=== PATIENT | male | born 1955 | race Caucasian/White ===

== ENCOUNTER → 2018-02-27 | Outpatient (CLI) | payer OTHER ==
[~2018-02-27] MED LIST: PANT40TA25 PO
== END | disposition home or self-care (01) ==
LOC: LAB 08:55
PROVIDERS: ATTEND Urology
DX: N40.1 Benign prostatic hyperplasia with lower urinary tract symptoms (principal)
CPT/HCPCS: 36415; 84153; 84154

== ENCOUNTER → 2018-11-02 | Outpatient (CLI) | payer OTHER ==
[~2018-11-02] VITALS: Ht 182.9 cm; Wt 90.7 kg
[2018-11-02 09:41] LABS: BILIRUBIN,URINE Negative (NEGATIVE); COLOR,URINE Yellow (YELLOW); GLUCOSE, URINE (UA) Negative (NEGATIVE); KETONES,URINE Negative (NEGATIVE); LEUKOCYTE ESTERASE ,URINE Negative (NEGATIVE); NITRATE,URINE Negative (NEGATIVE); OCCULT BLOOD,URINE Negative (NEGATIVE); PROTEIN,URINE Negative (NEGATIVE); UROBILINOGEN,URINE 0.2 mg/dL (0.2-1.0)
[2018-11-02 09:53] LABS: APPEARANCE,URINE CLEAR (CLEAR)
== END | disposition home or self-care (01) ==
LOC: LAB 09:03
PROVIDERS: ATTEND Urology
DX: N39.0 Urinary tract infection, site not specified (principal)
CPT/HCPCS: 36415; 81003; 84153; 84154; 84550; 87088

== ENCOUNTER → 2019-05-07 | Outpatient (CLI) | payer OTHER ==
[2019-05-07 09:00] LABS: BASOPHILS % (AUTO) 0.9 % (0.0-5.0); EOSINOPHILS % (AUTO) 2.8 % (0.0-8.0); HEMATOCRIT 41.5 % (42-54); LYMPHOCYTES % (AUTO) 45.7 % (21.0-51.0); MEAN CORPUSCULAR HEMOGLOBIN 32.5 pg (27.0-33.0); MEAN CORPUSCULAR HGB CONC 34.6 g/dL (32.0-36.0); MEAN CORPUSCULAR VOLUME 93.7 fL (79-99); MONOCYTES % (AUTO) 7.4 % (3.0-13.0); NEUTROPHILS % (AUTO) 43.2 % (40.0-77.0); NUCLEATED RED BLOOD CELLS 0.1 % (0.0-0.19); PLATELET COUNT (AUTO) 224 K/uL (130-400); RED BLOOD CELL COUNT(AUTO) 4.43 MIL/uL (4.50-6.20); RED CELL DISTRIBUTION WIDTH 12.8 % (11.0-15.5); WHITE BLOOD COUNT (AUTO) 6.7 K/uL (4.8-10.8)
[2019-05-07 09:20] LABS: ALBUMIN 4.1 g/dL (3.5-5.0); BILIRUBIN,TOTAL 0.7 mg/dL (0.2-1.0); CREATININE 1.3 mg/dL (0.5-1.5); POTASSIUM 4.6 mmol/L (3.5-5.1); THYROID STIMULATING HORMONE 2.39 uIU/mL (0.36-3.74); TOTAL PROTEIN, SERUM 7.7 g/dL (6.0-8.3)
== END | disposition home or self-care (01) ==
LOC: LAB 08:12
PROVIDERS: ATTEND Internal Medicine
DX: Z00.00 Encounter for general adult medical examination without abnormal findings (principal); R03.0 Elevated blood-pressure reading, without diagnosis of hypertension
CPT/HCPCS: 36415; 80053; 80061; 84153; 84154; 84443; 85025

== ENCOUNTER → 2019-07-01 | Outpatient (CLI) | payer OTHER | END | disposition home or self-care (01) | LOC: RAH 10:00 | PROVIDERS: ATTEND Urology | DX: N50.3 Cyst of epididymis (principal) | CPT/HCPCS: 76870 ==

== ENCOUNTER → 2020-07-14 | Outpatient (CLI) | payer OTHER ==
[~2020-07-14] MED LIST changes: -PANT40TA25 PO; +PANT40TA55 PO
[2020-07-14 09:41] LABS: EOSINOPHILS % (AUTO) 3.5 % (0.0-8.0); HEMATOCRIT 40.9 % (42-54); LYMPHOCYTES % (AUTO) 41.6 % (21.0-51.0); MEAN CORPUSCULAR HEMOGLOBIN 30.9 pg (27.0-33.0); MEAN CORPUSCULAR HGB CONC 34.5 g/dL (32.0-36.0); MEAN CORPUSCULAR VOLUME 89.7 fL (79-99); MONOCYTES % (AUTO) 6.3 % (3.0-13.0); NEUTROPHILS % (AUTO) 47.3 % (40.0-77.0); PLATELET COUNT (AUTO) 229 K/uL (130-400); RED BLOOD CELL COUNT(AUTO) 4.56 MIL/uL (4.50-6.20); RED CELL DISTRIBUTION WIDTH 12.6 % (11.0-15.5); WHITE BLOOD COUNT (AUTO) 5.8 K/uL (4.8-10.8)
[2020-07-14 09:58] LABS: APPEARANCE,URINE Clear (CLEAR); BILIRUBIN,URINE Negative (NEGATIVE); COLOR,URINE Yellow (YELLOW); GLUCOSE, URINE (UA) Negative (NEGATIVE); KETONES,URINE Negative (NEGATIVE); LEUKOCYTE ESTERASE ,URINE Negative (NEGATIVE); NITRATE,URINE Negative (NEGATIVE); OCCULT BLOOD,URINE Negative (NEGATIVE); PROTEIN,URINE Negative (NEGATIVE)
[2020-07-14 10:07] LABS: BILIRUBIN,TOTAL 0.5 mg/dL (0.2-1.0); POTASSIUM 4.1 mmol/L (3.5-5.1); TOTAL PROTEIN, SERUM 7.5 g/dL (6.0-8.3)
== END | disposition home or self-care (01) ==
LOC: LAB 08:38
PROVIDERS: ATTEND Internal Medicine
DX: R97.20 Elevated prostate specific antigen [PSA] (principal); E78.1 Pure hyperglyceridemia; I10 Essential (primary) hypertension
CPT/HCPCS: 36415; 80053; 80061; 81003; 82043; 84153; 84154; 85025

== ENCOUNTER → 2020-08-21 | Outpatient (CLI) | payer OTHER | END | disposition home or self-care (01) | LOC: RAH 07:41 | PROVIDERS: ATTEND Internal Medicine | DX: M51.36 Other intervertebral disc degeneration, lumbar region (principal) | CPT/HCPCS: 72100; 72220 ==

== ENCOUNTER → 2020-09-02 | Outpatient (CLI) | payer OTHER | END | disposition home or self-care (01) | LOC: RAH 08:10 | PROVIDERS: ATTEND Internal Medicine | DX: M51.16 Intervertebral disc disorders with radiculopathy, lumbar region (principal); M48.061 Spinal stenosis, lumbar region without neurogenic claudication; D18.09 Hemangioma of other sites; R60.0 Localized edema; M79.89 Other specified soft tissue disorders; M89.38 Hypertrophy of bone, other site | CPT/HCPCS: 72148 ==

== ENCOUNTER 2020-11-05 11:00 | Observation (INO) | payer OTHER ==
[~2020-11-05] VITALS: Ht 180.3 cm; Wt 101.6 kg
[2020-11-05 10:27] LABS: BASOPHILS % (AUTO) 1.6 % (0.0-5.0); EOSINOPHILS % (AUTO) 4.3 % (0.0-8.0); HEMATOCRIT 40.2 % (42-54); MEAN CORPUSCULAR HEMOGLOBIN 30.6 pg (27.0-33.0); MEAN CORPUSCULAR HGB CONC 34.1 g/dL (32.0-36.0); MEAN CORPUSCULAR VOLUME 89.7 fL (79-99); MONOCYTES % (AUTO) 7.6 % (3.0-13.0); NEUTROPHILS % (AUTO) 41.3 % (40.0-77.0); PLATELET COUNT (AUTO) 249 K/uL (130-400); RED BLOOD CELL COUNT(AUTO) 4.48 MIL/uL (4.50-6.20); RED CELL DISTRIBUTION WIDTH 12.7 % (11.0-15.5); WHITE BLOOD COUNT (AUTO) 6.4 K/uL (4.8-10.8)
[2020-11-05 10:33] LABS: POTASSIUM 4.2 mmol/L (3.5-5.1)
[2020-11-09 12:22] VITALS: BP 150/94
[2020-11-09] MEDS ORDERED: LOSA100T58 PO (16:07)
[2020-11-09] MEDS ORDERED: IBUP-2071 PO (16:07)
[2020-11-09] MEDS ORDERED: TIZA2CAP PO (16:07)
[2020-11-10] VITALS (24 sets, daily range): BP systolic 111–168; BP diastolic 54–105
[2020-11-10] MEDS ORDERED: CEFAZOLIN 3GM /D5W 100ML 100 ML IV SCH (06:00)
[2020-11-10] MEDS ORDERED: CEFAZOLIN SODIUM 1 GM VIAL ONE ×2 (06:40→06:52)
[2020-11-10] MEDS ORDERED: THROMBIN-JMI 20000 UNIT KIT TP ONE (06:41)
[2020-11-10] MEDS ORDERED: DURAMORPH PF1 MG/ML 10ML AMP IV ONE (06:41)
[2020-11-10] MEDS ORDERED: DEXAMETHASONE SOD PHOSPHATE 10MG/ML 1ML VIAL ONE ×2 (06:47→07:43)
[2020-11-10] MEDS ORDERED: LIDOCAINE PF 2% 5ML ABBOJECT ONE (06:47)
[2020-11-10] MEDS ORDERED: SUCCINYLCHOLINE CHLORIDE 20 MG/ML 10 ML VIAL ONE (06:47)
[2020-11-10] MEDS ORDERED: MIDAZOLAM HCL 1 MG/ML 2ML VIAL ONE ×2 (06:48→07:35)
[2020-11-10] MEDS ORDERED: GLYCOPYRROLATE 1 MG/5 ML SYRINGE ONE (06:48)
[2020-11-10] MEDS ORDERED: PROPOFOL 10 MG/ML 20ML VIAL IV ONE (06:48)
[2020-11-10] MEDS ORDERED: NEOSTIGMINE 5MG/5ML SYR IV ONE (06:48)
[2020-11-10] MEDS ORDERED: FENTANYL CITRATE PF 50 MCG/1 ML 2ML VIAL ONE ×3 (06:49→10:23)
[2020-11-10] MEDS ORDERED: ROCURONIUM 10MG/1ML SYR 10 MG/ML ML ONE ×2 (06:49→08:01)
[2020-11-10] MEDS ORDERED: ONDANSETRON HCL 4 MG/2 ML VIAL ONE ×2 (06:49→11:20)
[2020-11-10] MEDS ORDERED: LACTATED RINGERS 1000ML 1,000 ML IV ONE (06:52)
[2020-11-10] MEDS: BUPIVACAINE/EPI/PF 0.25% 30ML VIAL IJ SCH ×2 (07:00→08:03)
[2020-11-10] MEDS ORDERED: PHENYLEPHRINE HCL 10 MG/ML 1ML VIAL IV ONE ×2 (08:35→09:53)
[2020-11-10] MEDS ORDERED: EPHEDRINE SULFATE 50 MG/ML AMPULE ONE (09:49)
[2020-11-10] MEDS ORDERED: CEFAZOLIN SODIUM 1 GM VIAL IVP SCH ×2 (11:00→17:00)
[2020-11-10] MEDS ORDERED: PROMETHAZINE HCL 25 MG/ML 1ML AMPULE IM PRN (11:00)
[2020-11-10] MEDS ORDERED: IBUPROFEN 800 MG TAB PO PRN (11:00)
[2020-11-10] MEDS ORDERED: MORPHINE SULFATE 2 MG/ML 1ML SYG IVP PRN (11:00)
[2020-11-10] MEDS ORDERED: SODIUM CHLORIDE 0.9% 10 ML VIAL IVP PRN (11:00)
[2020-11-10] MEDS: LACTATED RINGERS 1000ML 1,000 ML IV SCH (11:00)
[2020-11-10] MEDS ORDERED: DEXAMETHASONE SOD PHOSPHATE 4 MG/ML 1ML VIAL IVP SCH (11:00)
[2020-11-10] MEDS: DEXAMETHASONE SOD PHOSPHATE 4 MG/ML 1ML VIAL IVP SCH (16:58)
[2020-11-10] MEDS ORDERED: TIZANIDINE HCL 2 MG PO SCH (21:00)
[2020-11-10] MEDS: HYDROCODONE/ACETAMINOPHEN 5/325 MG TAB PO PRN (21:43)
[2020-11-11] MEDS: DEXAMETHASONE SOD PHOSPHATE 4 MG/ML 1ML VIAL IVP SCH ×2 (00:11→05:50)
[2020-11-11] MEDS: LACTATED RINGERS 1000ML 1,000 ML IV SCH (00:20)
[2020-11-11] MEDS ORDERED: CEFAZOLIN SODIUM 1 GM VIAL IVP SCH (01:00)
[2020-11-11 03:59] VITALS: BP 137/88
[2020-11-11] MEDS: HYDROCODONE/ACETAMINOPHEN 5/325 MG TAB PO PRN (05:51)
[2020-11-11 08:17] VITALS: BP 138/109
[2020-11-11] MEDS ORDERED: LOSARTAN 100 MG TABLET PO SCH (09:00)
== END 2020-11-11 10:45 | disposition home or self-care (01) ==
LOC: EDSTATUS 11:00 → DAHIP 11-10 05:52 → 3AH 11-10 12:14
PROVIDERS: ADMIT Neurological Surgery; ATTEND Neurological Surgery
DX: M48.062 Spinal stenosis, lumbar region with neurogenic claudication (principal); Z20.822 Contact with and (suspected) exposure to COVID-19; I10 Essential (primary) hypertension; K21.9 Gastro-esophageal reflux disease without esophagitis; N40.0 Benign prostatic hyperplasia without lower urinary tract symptoms; Z79.899 Other long term (current) drug therapy
CPT/HCPCS: 36415; 63047; 63048; 71045; 72020; 80051; 85025; 93005; 96361; 96374; 96375 ×2; 96376; A4215; A4221; A4222; A4223; A4344; A4649 ×3; A4663; A6260; G0378 ×24; J0330; J0690 ×5; J1100 ×5; J2001; J2250 ×2; J2274; J2370 ×2; J2405 ×2; J2704; J2710; J3010 ×3; J3490 ×3; J7120 ×3; U0003

== ENCOUNTER → 2021-03-22 | Outpatient (CLI) | payer OTHER ==
[~2021-03-22] MED LIST changes: +IBUP-2071 PO; +LOSA100T58 PO; -PANT40TA55 PO; +TIZA2CAP PO
[2021-03-22 09:20] LABS: BASOPHILS % (AUTO) 1.3 % (0.0-5.0); EOSINOPHILS % (AUTO) 4.8 % (0.0-8.0); HEMATOCRIT 42.5 % (42-54); LYMPHOCYTES % (AUTO) 47.9 % (21.0-51.0); MEAN CORPUSCULAR HGB CONC 34.1 g/dL (32.0-36.0); MONOCYTES % (AUTO) 8.2 % (3.0-13.0); NEUTROPHILS % (AUTO) 37.7 % (40.0-77.0); PLATELET COUNT (AUTO) 250 K/uL (130-400); RED BLOOD CELL COUNT(AUTO) 4.83 MIL/uL (4.50-6.20); WHITE BLOOD COUNT (AUTO) 7.7 K/uL (4.8-10.8)
[2021-03-22 10:12] LABS: CREATININE 1.4 mg/dL (0.5-1.5); PROTHROMBIN TIME 10.9 SEC (9.6-11.6)
[2021-03-22 10:13] LABS: PARTIAL THROMBOPLASTIN TIME 26.9 SEC (26.3-35.5)
== END | disposition home or self-care (01) ==
LOC: LAB 08:35
PROVIDERS: ATTEND Urology
DX: R97.20 Elevated prostate specific antigen [PSA] (principal)
CPT/HCPCS: 36415; 80048; 85025; 85610; 85730

== ENCOUNTER → 2021-06-15 | Outpatient (CLI) | payer OTHER ==
[2021-06-15 10:47] LABS: CREATININE 1.1 mg/dL (0.5-1.5)
== END | disposition home or self-care (01) ==
LOC: LAB 09:04
PROVIDERS: ATTEND Urology
DX: C61 Malignant neoplasm of prostate (principal)
CPT/HCPCS: 36415; 82565; 84520

== ENCOUNTER → 2021-10-19 | Outpatient (CLI) | payer OTHER ==
[2021-10-19 09:15] LABS: BASOPHILS % (AUTO) 1.3 % (0.0-5.0); EOSINOPHILS % (AUTO) 2.8 % (0.0-8.0); HEMATOCRIT 43.5 % (42-54); LYMPHOCYTES % (AUTO) 49.2 % (21.0-51.0); MEAN CORPUSCULAR HEMOGLOBIN 30.7 pg (27.0-33.0); MEAN CORPUSCULAR HGB CONC 34.7 g/dL (32.0-36.0); MEAN CORPUSCULAR VOLUME 88.4 fL (79-99); MONOCYTES % (AUTO) 7.1 % (3.0-13.0); NEUTROPHILS % (AUTO) 39.4 % (40.0-77.0); PLATELET COUNT (AUTO) 228 K/uL (130-400); RED BLOOD CELL COUNT(AUTO) 4.92 MIL/uL (4.50-6.20); RED CELL DISTRIBUTION WIDTH 12.7 % (11.0-15.5); WHITE BLOOD COUNT (AUTO) 6.4 K/uL (4.8-10.8)
[2021-10-19 09:26] LABS: INR 1.03 (0.85-1.15); PROTHROMBIN TIME 11.2 SEC (9.6-11.6)
[2021-10-19 09:27] LABS: PARTIAL THROMBOPLASTIN TIME 27.9 SEC (26.3-35.5)
[2021-10-19 09:29] LABS: ALBUMIN 4.1 g/dL (3.5-5.0); BILIRUBIN,TOTAL 0.4 mg/dL (0.2-1.0); CREATININE 1.1 mg/dL (0.5-1.5); POTASSIUM 4.3 mmol/L (3.5-5.1); TOTAL PROTEIN, SERUM 7.9 g/dL (6.0-8.3)
== END | disposition home or self-care (01) ==
LOC: LAB 08:27
PROVIDERS: ATTEND Internal Medicine
DX: Z01.818 Encounter for other preprocedural examination (principal); E78.1 Pure hyperglyceridemia; I10 Essential (primary) hypertension; J44.9 Chronic obstructive pulmonary disease, unspecified
CPT/HCPCS: 36415; 71046; 80053; 80061; 82043; 84153; 85025; 85610; 85730; 93005

== ENCOUNTER → 2022-06-27 | Outpatient (CLI) | payer OTHER ==
[2022-06-27 09:16] LABS: EOSINOPHILS % (AUTO) 4.2 % (0.0-8.0); HEMATOCRIT 42.1 % (42-54); MEAN CORPUSCULAR HEMOGLOBIN 29.8 pg (27.0-33.0); MEAN CORPUSCULAR HGB CONC 33.7 g/dL (32.0-36.0); MEAN CORPUSCULAR VOLUME 88.3 fL (79-99); MONOCYTES % (AUTO) 7.1 % (3.0-13.0); NEUTROPHILS % (AUTO) 44.6 % (40.0-77.0); PLATELET COUNT (AUTO) 237 K/uL (130-400); RED BLOOD CELL COUNT(AUTO) 4.77 MIL/uL (4.50-6.20); RED CELL DISTRIBUTION WIDTH 12.9 % (11.0-15.5); WHITE BLOOD COUNT (AUTO) 6.9 K/uL (4.8-10.8)
[2022-06-27 09:30] LABS: ALBUMIN 3.9 g/dL (3.5-5.0); POTASSIUM 4.1 mmol/L (3.5-5.1); TOTAL PROTEIN, SERUM 7.6 g/dL (6.0-8.3)
[2022-06-27 09:32] LABS: HEMOGLOBIN A1C 5.7 % (4.0-6.0)
== END | disposition home or self-care (01) ==
LOC: LAB 08:26
PROVIDERS: ATTEND Internal Medicine
DX: I10 Essential (primary) hypertension (principal); E78.1 Pure hyperglyceridemia; K21.9 Gastro-esophageal reflux disease without esophagitis; R73.01 Impaired fasting glucose
CPT/HCPCS: 36415; 80053; 80061; 83036; 85025

== ENCOUNTER → 2023-01-10 | Outpatient (CLI) | payer OTHER ==
[~2023-01-10] MED LIST changes: +CYCL-309 PO; +IBUP-1493 PO
[2023-01-10 08:45] LABS: BASOPHILS % (AUTO) 1.2 % (0.0-5.0); EOSINOPHILS % (AUTO) 3.4 % (0.0-8.0); HEMATOCRIT 43.2 % (42-54); LYMPHOCYTES % (AUTO) 38.4 % (21.0-51.0); MEAN CORPUSCULAR HEMOGLOBIN 29.6 pg (27.0-33.0); MEAN CORPUSCULAR HGB CONC 33.8 g/dL (32.0-36.0); MEAN CORPUSCULAR VOLUME 87.4 fL (79-99); MONOCYTES % (AUTO) 7.5 % (3.0-13.0); NEUTROPHILS % (AUTO) 49.3 % (40.0-77.0); PLATELET COUNT (AUTO) 230 K/uL (130-400); RED BLOOD CELL COUNT(AUTO) 4.94 MIL/uL (4.50-6.20); RED CELL DISTRIBUTION WIDTH 13.1 % (11.0-15.5); WHITE BLOOD COUNT (AUTO) 6.4 K/uL (4.8-10.8)
[2023-01-10 08:54] LABS: HEMOGLOBIN A1C 5.4 % (4.0-6.0)
[2023-01-10 08:54] LABS: APPEARANCE,URINE CLEAR (CLEAR); BILIRUBIN,URINE NEGATIVE (NEGATIVE); COLOR,URINE YELLOW (YELLOW); GLUCOSE, URINE (UA) NEGATIVE (NEGATIVE); KETONES,URINE NEGATIVE (NEGATIVE); LEUKOCYTE ESTERASE ,URINE NEGATIVE Leu/uL (NEGATIVE); NITRATE,URINE NEGATIVE (NEGATIVE); OCCULT BLOOD,URINE NEGATIVE (NEGATIVE); PROTEIN,URINE NEGATIVE (NEGATIVE); UROBILINOGEN,URINE 0.2 mg/dL (0.2-1.0)
[2023-01-10 08:57] LABS: ALBUMIN 3.9 g/dL (3.5-5.0); CREATININE 1.1 mg/dL (0.5-1.5); TOTAL PROTEIN, SERUM 7.4 g/dL (6.0-8.3)
[2023-01-10 09:00] LABS: CREATININE,URINE RANDOM 179 mg/dL (30-135)
== END | disposition home or self-care (01) ==
LOC: LAB 07:52
PROVIDERS: ATTEND Internal Medicine
DX: R73.01 Impaired fasting glucose (principal); I10 Essential (primary) hypertension; E78.1 Pure hyperglyceridemia; J44.9 Chronic obstructive pulmonary disease, unspecified; M54.50 Low back pain, unspecified
CPT/HCPCS: 36415; 80053; 80061; 81003; 82043; 82570; 83036; 85025

== ENCOUNTER 2023-03-07 06:41 | Day surgery (SDC) | payer OTHER ==
[~2023-03-07] VITALS: Ht 182.9 cm; Wt 122.5 kg
[~2023-03-07 06:41] MED LIST changes: +AEC81 PO; -CYCL-309 PO; +DILT90SR PO; -IBUP-1493 PO; -IBUP-2071 PO; -LOSA100T58 PO; +PANT40TA PO; -TIZA2CAP PO
[2023-03-07] MEDS ORDERED: LIDOCAINE HCL 1% 20 ML VIAL ONE (07:30)
[2023-03-07] MEDS ORDERED: PROPOFOL 10 MG/ML 20ML VIAL IV ONE ×2 (07:30→08:23)
[2023-03-07] MEDS ORDERED: 0.9%NACL 1000ML 1,000 ML IV ONE (08:20)
[2023-03-07 08:45] VITALS: BP 140/77
[2023-03-07 08:55] VITALS: BP 138/78
[2023-03-07 09:05] VITALS: BP 129/86
[2023-03-07 09:15] VITALS: BP 138/83
== END 2023-03-07 09:20 | disposition home or self-care (01) ==
LOC: DAH 06:41 → ENDO 06:41
PROVIDERS: ATTEND Internal Medicine Gastroenterology
DX: Z12.11 Encounter for screening for malignant neoplasm of colon (principal); Z20.822 Contact with and (suspected) exposure to COVID-19; K21.9 Gastro-esophageal reflux disease without esophagitis; K63.5 Polyp of colon; K57.30 Diverticulosis of large intestine without perforation or abscess without bleeding; K44.9 Diaphragmatic hernia without obstruction or gangrene; I10 Essential (primary) hypertension; Z86.010 Personal history of colon polyps; Z90.89 Acquired absence of other organs; Z90.49 Acquired absence of other specified parts of digestive tract; Z98.890 Other specified postprocedural states; Z80.0 Family history of malignant neoplasm of digestive organs; Z79.899 Other long term (current) drug therapy; Z79.82 Long term (current) use of aspirin
CPT/HCPCS: 87426; 43239; 45385; J7030 ×2; J2704 ×2; A4620; A4215; A4223; A4657 ×3; A7002; A4222; A4221; A4663; A4606